=== PATIENT | male | born 1970 | race African-American/Black ===

== ENCOUNTER 2018-03-17 13:35 | Emergency (ER) | payer OTHER ==
--- NOTE | 2018-03-17 14:06 | EDM.PDOC ---
ED HPI GENERAL MEDICAL PROBLEM - General Chief Complaint: Respiratory Problem Stated Complaint: SOB/WEAKNESS Time Seen by Provider: 03/17/18 13:51 Source of Information: Reports: Patient History Limitations: Reports: No Limitations - History of Present Illness INITIAL COMMENTS - FREE TEXT/NARRATIVE: The patient states like he developed the feeling like he cannot take a deep breath, and if he tries, he has pain to the underside of his ribs that wraps around to his back, since yesterday. He reports having a dry cough since yesterday. He states that he developed generalized weakness about one hour ago. No recent fever, chills, chest pain, palpitations, nausea, vomiting, constipation, diarrhea, or urinary symptoms. No prior similar symptoms. Here in the ED, it is noted that the patient's oxygen saturation is around 90% on room air. The patient states that he moved from [place] about 2 months ago, and does not have a PCP. - Related Data Allergies Allergy/AdvReac Type Severity Reaction Status Date / Time [facility] Allergy Itching Verified 03/17/18 16:37 Home Meds: Home Meds Fluticasone Propionate [Flonase] 1 dose INH ASDIRECTED PRN 03/17/18 [History] Past Medical History Cardiovascular History: Reports: High Cholesterol, Hypertension Social & Family History - Tobacco Use Smoking Status *Q: Current Every Day Smoker Years of Tobacco use: 29 Packs/Tins Daily: 0.6 - Alcohol Use Alcohol Use History: Yes Alcohol Use Frequency: Socially - Recreational Drug Use Recreational Drug Use: No - Living Situation & Occupation Living situation: Reports: Single, Other (with friends) Occupation: Employed (Construction) ED ROS GENERAL - Review of Systems Review Of Systems: ROS reveals no pertinent complaints other than HPI. ED EXAM, GENERAL - Physical Exam Exam: See Below Exam Limited By: No Limitations General Appearance: Alert, WD/WN, No Apparent Distress Eye Exam: Bilateral Eye: EOMI, Normal Inspection Ears: Normal External Exam, Hearing Grossly Normal Nose: Normal Inspection, No Blood Throat/Mouth: Normal Inspection, Normal Lips, Normal Voice, No Airway Compromise Head: Atraumatic, Normocephalic Neck: Normal Inspection, Full Range of Motion Respiratory/Chest: No Respiratory Distress, No Accessory Muscle Use, Crackles ( bibasilar). No: Rhonchi, Wheezing Cardiovascular: Normal Peripheral Pulses, Regular Rate, Rhythm, No Gallop, No JVD, No Murmur, No Rub Peripheral Pulses: 4+: Radial (L), Radial (R) GI/Abdominal: Normal Bowel Sounds, Soft, Non-Tender, No Organomegaly, No Distention, No Abnormal Bruit, No Mass (Male) Exam: Deferred Rectal (Males) Exam: Deferred Back Exam: Normal Inspection, Full Range of Motion, NT Extremities: Normal Inspection, Normal Range of Motion, No Pedal Edema, Normal Capillary Refill Neurological: Alert, Oriented, Normal Cognition, No Motor/Sensory Deficits Psychiatric: Normal Affect Skin Exam: Warm, Dry, Intact, Normal Color, No Rash Course - Vital Signs Last Recorded V/S: Last Vital Signs Temp 36.3 C 03/17/18 13:50 Pulse 75 03/17/18 13:50 Resp 24 H 03/17/18 13:50 BP 144/133 H 03/17/18 13:50 Pulse Ox 90 L 03/17/18 13:50 - Orders/Labs/Meds Orders: Active Orders 24 hr Category Date Time Status Ang Chest [CT] Stat Exams 03/17/18 15:07 Taken Chest 2V [CR] Stat Exams 03/17/18 14:04 Taken Sodium Chloride 0.9% [Normal Saline] 1,000 ml Med 03/17/18 15:15 Active IV ASDIRECTED Sodium Chloride 0.9% [Normal Saline] 100 ml Med 03/17/18 16:00 Active IV ASDIRECTED Sodium Chloride 0.9% [Saline Flush] Med 03/17/18 15:58 Active 10 ml FLUSH ONETIME PRN Medication Orders Sodium Chloride (Normal Saline) 1,000 mls @ 100 mls/hr IV ASDIRECTED RAE Last Admin: 03/17/18 15:13 Dose: 100 mls/hr Sodium Chloride (Normal Saline) 100 mls @ 75 mls/hr IV ASDIRECTED RAE Last Admin: 03/17/18 16:18 Dose: 75 mls/hr Sodium Chloride (Saline Flush) 10 ml FLUSH ONETIME PRN PRN Reason: IV FLUSH Last Admin: 03/17/18 16:18 Dose: 10 ml Labs: Laboratory Tests 03/17/18 03/17/18 03/17/18 Range/Units 14:18 14:18 14:18 WBC 4.51 (4.23-9.07) K/mm3 RBC 5.47 (4.63-6.08) M/mm3 Hgb 15.7 (13.7-17.5) gm/L Hct 46.6 (40.1-51.0) % MCV 85.2 (79.0-92.2) fl MCH 28.7 (25.7-32.2) pg MCHC 33.7 (32.2-35.5) g/dl RDW Std Deviation 50.9 H (35.1-43.9) fL Plt Count 173 (163-337) K/mm3 MPV 10.7 (9.4-12.3) fl Neutrophils % (Manual) 48 (40-60) % Band Neutrophils % 0 (0-10) % Lymphocytes % (Manual) 40 (20-40) % Atypical Lymphs % 0 % Monocytes % (Manual) 10 (2-10) % Eosinophils % (Manual) 2 (0.8-7.0) % Basophils % (Manual) 0 L (0.2-1.2) Platelet Estimate Adequate Plt Morphology Comment Normal RBC Morph Comment Normal PT (9.5-12.1) SECONDS INR APTT (24-31) SECONDS D-Dimer, Quantitative 2.59 H (0.19-0.50) mg/L Sodium 135 L (136-145) mEq/L Potassium 3.9 (3.5-5.1) mEq/L Chloride 103 (98-107) mEq/L Carbon Dioxide 26 (21-32) mEq/L Anion Gap 9.9 (5-15) BUN 21 H (7-18) mg/dL Creatinine 1.5 H (0.7-1.3) mg/dL Est Cr Clr Drug Dosing 69.26 mL/min Estimated GFR (MDRD) > 60 (>60) mL/min BUN/Creatinine Ratio 14.0 (14-18) Glucose 111 H (74-106) mg/dL Calcium 9.1 (8.5-10.1) mg/dL Magnesium 2.0 (1.8-2.4) mg/dl Total Bilirubin 0.7 (0.2-1.0) mg/dL AST 271 H (15-37) U/L ALT 419 H (16-63) U/L Alkaline Phosphatase 69 (46-116) U/L Troponin I < 0.017 (0.00-0.056) ng/mL NT-Pro-B Natriuret Pep (0-125) pg/mL Total Protein 7.5 (6.4-8.2) g/dl Albumin 3.3 L (3.4-5.0) g/dl Globulin 4.2 gm/dL Albumin/Globulin Ratio 0.8 L (1-2) 03/17/18 03/17/18 Range/Units 14:18 14:18 WBC (4.23-9.07) K/mm3 RBC (4.63-6.08) M/mm3 Hgb (13.7-17.5) gm/L Hct (40.1-51.0) % MCV (79.0-92.2) fl MCH (25.7-32.2) pg MCHC (32.2-35.5) g/dl RDW Std Deviation (35.1-43.9) fL Plt Count (163-337) K/mm3 MPV (9.4-12.3) fl Neutrophils % (Manual) (40-60) % Band Neutrophils % (0-10) % Lymphocytes % (Manual) (20-40) % Atypical Lymphs % % Monocytes % (Manual) (2-10) % Eosinophils % (Manual) (0.8-7.0) % Basophils % (Manual) (0.2-1.2) Platelet Estimate Plt Morphology Comment RBC Morph Comment PT 11.3 (9.5-12.1) SECONDS INR 1.04 APTT 29 (24-31) SECONDS D-Dimer, Quantitative (0.19-0.50) mg/L Sodium (136-145) mEq/L Potassium (3.5-5.1) mEq/L Chloride (98-107) mEq/L Carbon Dioxide (21-32) mEq/L Anion Gap (5-15) BUN (7-18) mg/dL Creatinine (0.7-1.3) mg/dL Est Cr Clr Drug Dosing mL/min Estimated GFR (MDRD) (>60) mL/min BUN/Creatinine Ratio (14-18) Glucose (74-106) mg/dL Calcium (8.5-10.1) mg/dL Magnesium (1.8-2.4) mg/dl Total Bilirubin (0.2-1.0) mg/dL AST (15-37) U/L ALT (16-63) U/L Alkaline Phosphatase (46-116) U/L Troponin I (0.00-0.056) ng/mL NT-Pro-B Natriuret Pep 651 H (0-125) pg/mL Total Protein (6.4-8.2) g/dl Albumin (3.4-5.0) g/dl Globulin gm/dL Albumin/Globulin Ratio (1-2) Meds: Medications Generic Name Dose Route Start Last Admin Trade Name Freq PRN Reason Stop Dose Admin Sodium Chloride 1,000 mls @ 100 mls/hr 03/17/18 15:15 03/17/18 15:13 Normal Saline IV 100 mls/hr ASDIRECTED RAE Administration Sodium Chloride 100 mls @ 75 mls/hr 03/17/18 16:00 03/17/18 16:18 Normal Saline IV 75 mls/hr ASDIRECTED RAE Administration Sodium Chloride 10 ml 03/17/18 15:58 03/17/18 16:18 Saline Flush FLUSH 10 ml ONETIME PRN Administration IV FLUSH Discontinued Medications Generic Name Dose Route Start Last Admin Trade Name Freq PRN Reason Stop Dose Admin Iopamidol 100 ml 03/17/18 15:58 03/17/18 16:18 Isovue-370 (76%) IVPUSH 03/17/18 15:59 100 ml ONETIME ONE Administration Ondansetron HCl 4 mg 03/17/18 16:15 03/17/18 16:20 Zofran IVPUSH 03/17/18 16:16 4 mg ONETIME ONE Administration - Re-Assessments/Exams Free Text/Narrative Re-Assessment/Exam: 03/17/18 14:06 I am most concerned about a PE. I ordered a D-dimer, but in addition of order blood work and chest x-ray. 03/17/18 14:47 2-view chest radiograph reviewed. There appears to be cardiomegaly with mild pulmonary vascular congestion and a small pleural effusion seen in the posterior sulcus, consistent with decompensated CHF. No focal infiltrate. No pneumothorax. Formal read per the Radiologist pending. Based on the above, I have added a BNP the patient's lab work. 09/16/18 15:10 The patient's D-dimer has returned significantly elevated at 2.59, however, his BUN/Cr are elevated at 21/1.5, therefore it is not clear if the elevated D- dimer is due to renal insufficiency or a blood clot. I have ordered a CT angiogram of the chest to evaluate for a PE, along with IV fluid, however, given the apparent CHF on the chest radiograph, the patient may already be floverloaded, therefore if his oxygenation decreases at all, I will discontinue the IV fluid. PTT/INR have been added to the patient's blood work. In addition, the patient's AST and ALT are elevated. I suspect that the patient' s renal insufficiency and elevated transaminases may be due to decreased cardiac output and passive hepatic congestion, related to CHF. It is also possible, however, that a PE is responsible for his CHF. 03/17/18 17:00 CT angiogram of the chest is read by [facility] as: No evidence of acute pulmonary embolism Interstitial edema Pleural effusions, right greater than left. Cardiomegaly Groundglass opacity in the right upper lobe most likely represents small focus of alveolar edema. 03/17/18 17:26 Case discussed with the patient and his friend. I am concerned that if we discharge him home and have him try to follow-up as an outpatient, that it may be a month before he could see a Assistant Product Manager, and while we can perform an echocardiogram at this facility, it may be some time before we had the read of the echocardiogram, and could not perform any further tests at this facility. I therefore recommended that the patient be transferred to [place]. The patient agreed, not having a preference between at [facility] and [facility]. Case then discussed with [facility] at 17:14. Case then discussed with Dr. Gold, [facility] Hospitalist, at 17: 20. He accepted the patient for transfer to their facility. He would prefer that the patient go by ground ambulance. 03/17/18 17:30 The patient was given 40 mg IV Lasix here in the ED. The chest x-ray and CT angiogram of the chest images have been pushed to [facility]. Departure - Departure Time of Disposition: 17:25 Disposition: DC/Tfer to Acute Hospital 02 Condition: Fair Clinical Impression: Congestive heart failure (CHF), Acute kidney injury, Elevated transaminase level - Discharge Information *PRESCRIPTION DRUG MONITORING PROGRAM REVIEWED*: Not Applicable *COPY OF PRESCRIPTION DRUG MONITORING REPORT IN PATIENT HE: Not Applicable Referrals: PCP,None [Primary Care Provider] - - My Orders Last 24 Hours: My Active Orders 03/17/18 14:04 Chest 2V [CR] Stat 03/17/18 15:07 Ang Chest [CT] Stat 03/17/18 15:15 Sodium Chloride 0.9% [Normal Saline] 1,000 ml IV ASDIRECTED 03/17/18 15:58 Sodium Chloride 0.9% [Saline Flush] 10 ml FLUSH ONETIME PRN 03/17/18 16:00 Sodium Chloride 0.9% [Normal Saline] 100 ml IV ASDIRECTED - Assessment/Plan Last 24 Hours: My Active Orders 03/17/18 14:04 Chest 2V [CR] Stat 03/17/18 15:07 Ang Chest [CT] Stat 03/17/18 15:15 Sodium Chloride 0.9% [Normal Saline] 1,000 ml IV ASDIRECTED 03/17/18 15:58 Sodium Chloride 0.9% [Saline Flush] 10 ml FLUSH ONETIME PRN 03/17/18 16:00 Sodium Chloride 0.9% [Normal Saline] 100 ml IV ASDIRECTED
[2018-03-17] MEDS ORDERED: Sodium Chloride 0.9% 1,000 ML IV SCH (15:15)
[2018-03-17] MEDS ORDERED: Iopamidol 755 Mg/ML 100 ML Bottle IVPUSH ONE (15:58)
[2018-03-17] MEDS ORDERED: Sodium Chloride 0.9% 10 ML Syringe FLUSH PRN (15:58)
[2018-03-17] MEDS ORDERED: Sodium Chloride 0.9% 100 ML IV SCH (16:00)
[2018-03-17] MEDS ORDERED: Ondansetron 4 MG/2 ML SDV IVPUSH ONE (16:15)
[2018-03-17] MEDS ORDERED: Furosemide 40 MG/4 ML VIAL IVPUSH ONE (17:25)
--- NOTE | 2018-03-18 07:12 | CR ---
Chest: Two views of the chest were obtained. Comparison: No prior chest x-ray. Heart is mildly enlarged. Pulmonary vessels are mildly congested. Omid B lines are noted. Bony structures are unremarkable. Impression: 1. Findings suspicious for CHF. Diagnostic code #3
--- NOTE | 2018-03-18 07:12 | CT ---
CT chest Technique: Multiple axial sections through the chest were obtained. Intravenous contrast was utilized. Findings: Pulmonary arteries are well-opacified. No filling defects are seen to indicate pulmonary embolism. Small to moderate sized bilateral pleural effusions are noted. Pulmonary vessels are prominent in size. Focal parenchymal densities noted within the right upper lung adjacent to the perihilar regions most likely due to early alveolar edema. Interstitial edema is present. Heart is enlarged. Visualized upper abdominal structures are unremarkable. Impression: 1. Bilateral pleural effusions with pulmonary vascular congestion, interstitial edema and focal alveolar edema within the right upper lung. Findings are highly suspicious for CHF. 2. No findings of pulmonary embolism. Diagnostic code #3 I agree with preliminary report from [facility], finalized on 03/17/18, 5:54 PM Central Time
== END 2018-03-17 18:10 ==
LOC: JD.ED 13:35
DX: I11.0 Hypertensive heart disease with heart failure (principal); I50.9 Heart failure, unspecified; N17.9 Acute kidney failure, unspecified; F17.210 Nicotine dependence, cigarettes, uncomplicated; R74.0 Nonspecific elevation of levels of transaminase and lactic acid dehydrogenase [LDH]
CPT/HCPCS: 36415; 71046; 71275; 80053; 83735; 83880; 84484; 85007; 85027; 85379; 85610; 85730; 96361; 96374; 96375; 99285; J1940; J2405; J7030; J7040; J7050; Q9967

== ENCOUNTER 2022-04-19 11:06 | Emergency (ER) | payer SELFPAY ==
[2022-04-19] MEDS ORDERED: Sodium Chloride 0.9% 10 ML Syringe FLUSH PRN (11:52)
[2022-04-19 13:00] LABS: ESTIMATED GFR 55 mL/min (>60)
== END 2022-04-19 16:41 | disposition home or self-care (01) ==
LOC: JD.ED 11:06
DX: R07.89 Other chest pain (principal); I10 Essential (primary) hypertension; E11.9 Type 2 diabetes mellitus without complications; Z88.1 Allergy status to other antibiotic agents
CPT/HCPCS: 36415; 70450; 71045; 80053; 83735; 84484; 85025; 93005; 99285; J3490